=== PATIENT | female | born 1980 | race Caucasian/White ===

== ENCOUNTER 2021-09-14 10:12 | Emergency (ER) | payer OTHER ==
[~2021-09-14 10:12] MED LIST: AMITRIPTYLINE H50 MG PO; BENADRYL25 M2 PO; BENTYL20 MG PO; BUSPIRONE HCL10 MG PO; CELEXA20 MG PO; CITALOPRAM HYDR20 MG PO; CLINDAMYCIN HC300 MG PO; CYCLOBENZAPRINE10 MG PO; DIPHENHYDRAMINE25 MG PO; Fioricet 325 MG1 TAB PO; HYDROCODONE BIT1 T11 PO; LYRICA100 MG PO; MOTRIN800 MG PO; NORFLEX100 MG PO; OXYCODONE/ACETA1 TAB PO; PANTOPRAZOLE SO40 MG PO; PERCOCET 325 MG1 TA2 PO; PREDNISONE5 MG PO; SEROQUEL400 MG PO; SYNTHROID0.075 MG PO; ULTRAM50 MG PO; VICODIN 5/500 505 MG PO; VITAMIN D50000 I1 PO; XANAX1 MG PO; ZANTAC150 MG PO
== END 2021-09-14 11:11 | disposition left against medical advice (07) ==
LOC: ED 10:12
DX: Z53.21 Procedure and treatment not carried out due to patient leaving prior to being seen by health care provider (principal)

== ENCOUNTER 2021-12-05 18:47 | Emergency (ER) | payer OTHER ==
[~2021-12-05] VITALS: Ht 167.6 cm; Wt 129.7 kg
== END 2021-12-05 23:03 | disposition home or self-care (01) ==
LOC: ED 18:47
DX: S76.011A Strain of muscle, fascia and tendon of right hip, initial encounter (principal); S70.01XA Contusion of right hip, initial encounter; Z88.0 Allergy status to penicillin; Z88.2 Allergy status to sulfonamides; Z88.8 Allergy status to other drugs, medicaments and biological substances; Z79.899 Other long term (current) drug therapy; Z90.710 Acquired absence of both cervix and uterus; W18.39XA Other fall on same level, initial encounter; Y93.89 Activity, other specified; Y92.89 Other specified places as the place of occurrence of the external cause; Y99.8 Other external cause status

== ENCOUNTER 2022-07-20 17:33 | Emergency (ER) | payer OTHER ==
[~2022-07-20] VITALS: Ht 167.6 cm; Wt 118.4 kg
[2022-07-20] MEDS ORDERED: HYDROCODONE-AC1 EAC1 PO (18:47)
[2022-07-20] MEDS ORDERED: AMOXICILLIN500 M2 PO (18:47)
== END 2022-07-20 20:26 | disposition home or self-care (01) ==
LOC: ED 17:33
DX: K02.9 Dental caries, unspecified (principal); M25.561 Pain in right knee; M25.562 Pain in left knee; Z88.0 Allergy status to penicillin; Z88.1 Allergy status to other antibiotic agents; Z88.5 Allergy status to narcotic agent; Z88.2 Allergy status to sulfonamides; Z79.899 Other long term (current) drug therapy; Z90.710 Acquired absence of both cervix and uterus

== ENCOUNTER 2023-07-03 13:51 | Emergency (ER) | payer OTHER ==
[~2023-07-03] VITALS: Ht 167.6 cm; Wt 109.3 kg
[~2023-07-03 13:51] MED LIST changes: +AMOXICILLIN500 M2 PO; +HYDROCODONE-AC1 EAC1 PO
[2023-07-03] MEDS ORDERED: IBUPROFEN600 MG PO (15:20)
[2023-07-03] MEDS ORDERED: Clindamycin Hydrochloride 150 MG CAP PO ONE (15:20)
[2023-07-03] MEDS ORDERED: Ketorolac Tromethamine 60 MG/2 ML VIAL IM ONE (15:20)
[2023-07-03] MEDS ORDERED: CLINDAMYCIN HC300 MG PO (15:20)
== END 2023-07-03 16:27 | disposition home or self-care (01) ==
LOC: ED 13:51
DX: K02.9 Dental caries, unspecified (principal); K05.20 Aggressive periodontitis, unspecified; Z88.0 Allergy status to penicillin; Z88.1 Allergy status to other antibiotic agents; Z88.8 Allergy status to other drugs, medicaments and biological substances; Z79.899 Other long term (current) drug therapy; Z90.711 Acquired absence of uterus with remaining cervical stump